=== PATIENT | male | born 1995 | race Hispanic/Latino ===

== ENCOUNTER 2016-11-23 17:04 | Observation (INO) | payer OTHER ==
[~2016-11-23] VITALS: Ht 170.2 cm; Wt 81.5 kg
[2016-11-23 17:07] VITALS: BP 139/84; PULSE 94; RESP 18; O2SAT 99
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
[2016-11-23] MEDS ORDERED: TdaP Vaccine 0.5 mL Inj IM ONE (17:50)
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
[2016-11-23] MEDS ORDERED: 0.9% Sodium Chloride 1,000 ML IV ONE (18:53)
[2016-11-23] MEDS ORDERED: HYDROmorphone 0.5 mg/0.5 mL iSecure Syringe IVPUSH PRN (18:55)
[2016-11-23] MEDS ORDERED: Alum-Mag Hydrox-Simeth 30 mL Suspension PO PRN (18:55)
[2016-11-23] MEDS ORDERED: Ondansetron 2 mg/mL 2 mL Inj IVPUSH ONE (18:55)
[2016-11-23] MEDS ORDERED: Ondansetron 2 mg/mL 2 mL Inj IVPUSH PRN ×2 (18:55→21:10)
--- NOTE | 2016-11-23 19:00 | DRSVH ---
PROCEDURE: X-RAY LEFT SHOULDER, MINIMUM TWO VIEWS ([id number]) INDICATIONS: injury TECHNIQUE: 4 views of the shoulder were acquired. COMPARISON: [facility], CR, XR RIBS INC PA CXR MIN 3VW LT, 11/23/2016, 18:01. FINDINGS: Bones: Left fifth and sixth rib fractures, mildly displaced. Soft tissues: There is a small left apical pneumothorax IMPRESSION: Left fifth and sixth rib fractures, with associated small left apical pneumothorax Dictated by: Esteban Eldridge M.D. on 11/23/2016 at 18:57 Approved by: Esteban Eldridge M.D. on 11/23/2016 at 18:58
[2016-11-23 19:48] VITALS: BP_SYST 137; BP_SYST 144; BP_DIAS 89; BP_DIAS 91; PULSE 82; RESP 18; O2SAT 99
[2016-11-23 20:41] LABS: BASOPHILS % (AUTO) 0 % (0-3); EOSINOPHILS % (AUTO) 0 % (0-5); MONOCYTES % (AUTO) 7.2 % (4-12); Mean Corpuscular Hemoglobin 30.5 pg (27.0-35.0); Mean Corpuscular Volume 89.8 fL (81-100); NEUTROPHILS % (AUTO) 84.4 % (40-74); Platelet Count 301 bil/L (150-400)
--- NOTE | 2016-11-23 20:48 | DRSVH ---
PROCEDURE: CT BRAIN WITHOUT CONTRAST ([id number]) INDICATIONS: Trauma TECHNIQUE: Noncontrast 4.5 mm thick angled axial sections acquired from the foramen magnum to the vertex, with c oronal reformats. COMPARISON: None. FINDINGS: Image quality: Suboptimal evaluation due to positioning CSF spaces: Basal cisterns are patent. No extra-axial fluid collections. Ventricles are normal in size and shape. Brain: No midline shift. No intracranial masses or hemorrhage. Peterson-white matter interface is norm al. Incidental felipe cisterna magna, anatomic variant Skull and face: Calvarium and visualized facial bones are intact, without suspicious lesions. Sinuses: Mild mucosal thickening in the left sphenoid sinus. IMPRESSION: No acute intracranial process. Dictated by: Esteban Eldridge M.D. on 11/23/2016 at 20:43 Approved by: Esteban Eldridge M.D. on 11/23/2016 at 20:47
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
--- NOTE | 2016-11-23 20:55 | DRSVH ---
PROCEDURE: CT CERVICAL SPINE WITHOUT CONTRAST ([id number]) INDICATIONS: Trauma TECHNIQUE: Noncontrast 3 mm thick sections acquired from the skull base to the T4 level. Sagittal and coronal r eformats were then constructed. For radiation dose reduction, the following was used: automated exp osure control, adjustment of mA and/or kV according to patient size. COMPARISON: [facility], CR, XR RIBS INC PA CXR MIN 3VW LT, 11/23/2016, 18:01. FINDINGS: Image quality: Excellent. Bones: Partially visualized left-sided rib fractures seen on the rib series dated same day. Soft tissues: Small left apical pneumothorax IMPRESSION: No cervical spine fracture. Partially visualized left-sided rib fractures Small left apical pneumothorax Dictated by: Esteban Eldridge M.D. on 11/23/2016 at 20:47 Approved by: Esteban Eldridge M.D. on 11/23/2016 at 20:53
[2016-11-23] MEDS ORDERED: Dextrose 5% Lactated Ringer's 1,000 ML IV SCH (21:06)
[2016-11-23 21:07] LABS: INR 0.95 ratio
[2016-11-23] MEDS ORDERED: HYDROmorphone 1 mg/mL Inj IVPUSH PRN (21:10)
[2016-11-23] MEDS ORDERED: MetoCLOpramide 5 mg/mL 2 mL Inj IVPUSH PRN (21:10)
--- NOTE | 2016-11-23 21:53 | DRSVH ---
PROCEDURE: CT CHEST WITH CONTRAST ([id number]) INDICATIONS: trauma TECHNIQUE: After the administration of intravenous contrast, 5 mm thick sections acquired from the pulmonary api parker to the posterior costophrenic angles. 7 mm thick coronal and sagittal MIP reformats were acquire d. For radiation dose reduction, the following was used: automated exposure control, adjustment of mA and/or kV according to patient size. COMPARISON: None. FINDINGS: Image quality: Excellent. Lungs and pleura: Small left pneumothorax is present. There is dependent atelectasis in the lung base s. No pleural effusion Mediastinum: Heart size is normal. No pericardial effusion. No mediastinal or hilar adenopathy by size criteria. Thoracic aorta and central pulmonary arteries are normal in size. Esophagus is deann l in caliber. No hiatal hernia. Bones and chest wall: Left fifth, sixth mildly displaced rib fractures. There are nondisplaced fract ures of the left seventh, eighth and ninth ribs. Adjacent subcutaneous soft tissue emphysema. No vert ebral body compression fractures Abdomen: Visualized upper abdominal solid organs appear normal. Upper abdominal bowel loops are nor mal in caliber. IMPRESSION: Multiple left rib fractures involving left fifth-ninth ribs as above. Small left pneumothorax. Dictated by: Esteban Eldridge M.D. on 11/23/2016 at 21:47 Approved by: Esteban Eldridge M.D. on 11/23/2016 at 21:51
[2016-11-23 22:47] VITALS: BP 151/84; PULSE 85; RESP 20; O2SAT 100
[2016-11-24 00:46] VITALS: BP 124/72; PULSE 86; RESP 18; O2SAT 98
--- NOTE | 2016-11-24 04:59 | NUR ---
Admission Pt admitted to [facility] rm 1026 at 2230 from the ED. Pt and his girlfriend [place] a [place]. Pt has 2 fractured ribs to left side and a very small pneumothorax to left lung. 0 surgical procedures done. Pt states his pain is 8/10 but he is tolerating it. He states most of the pain is to left scapula from tissue bruising. Accepted offer of pain meds, had + effects and pain reduced to 5/10. IV patent, IV fluids started. Pt oriented to room, call light and BR. Pt is general diet and full code. Tolerating PO intake. Call light in reach, bed in low position. Care continues.
[2016-11-24 05:35] VITALS: BP 126/68; PULSE 85; RESP 16; O2SAT 97
[2016-11-24 06:52] LABS: BASOPHILS % (AUTO) 0.1 % (0-3); EOSINOPHILS % (AUTO) 0.8 % (0-5); Mean Corpuscular Hemoglobin 30.3 pg (27.0-35.0); Mean Corpuscular Volume 91.3 fL (81-100); NEUTROPHILS % (AUTO) 54.4 % (40-74); Platelet Count 279 bil/L (150-400)
[2016-11-24 08:37] VITALS: BP 122/80; PULSE 82; RESP 18; O2SAT 98
--- NOTE | 2016-11-24 09:46 | PCM.PNSURG ---
Subjective Date of Service: Nov 24, 2016 Date of Service: Nov 24, 2016 Visit Information: Reason for Visit Rib Fx Pneumothorax Surgery/Surgery Date Post-Op Day # Date of Admission: Nov 23, 2016 at 19:32 Hospital Day # 1 Subjective: Seen this AM with general surgery team denying any significant related pain, nausea, or vomiting. Objective Vital Sign- Last 8 Hours Date Time Temp Pulse Resp B/P Pulse Ox O2 Delivery O2 Flow Rate FiO2 11/24/16 08:37 36.6 82 18 122/80 98 Room Air 11/24/16 05:35 36.6 85 16 126/68 97 Room Air Intake and Output- Last 8 Hour 11/24/16 Cumulative From/Thru 07:00 11/23/16 17:07 - 11/24/16 06:35 Intake Total 1012 ml 2012 ml Output Total 450 ml 450 ml Balance 562 ml 1562 ml Intake Oral 400 ml 400 ml IV Total 612 ml 1612 ml Output Urine Total 450 ml 450 ml # Bowel Movements 0 0 Result Diagram: 11/24/16 0558 11/24/16 0558 Papito Stubbs PA-C Nov 24, 2016 09:46
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
--- NOTE | 2016-11-24 11:48 | PCM.DISURG ---
Surgical Discharge Instruction Date of Service Nov 24, 2016 Dates of Hospitalization Date of Hospital Admission Nov 23, 2016 at 19:32 Providers Admitting Physician: Reilly Bronson MD Primary Care Physician: Nopmeaghan Attending Physician: Reilly Bronson MD Discharge Diagnosis Discharge Diagnosis Primary Diagnoses: 1. Fractured left ribs 5 through 9 2. Small left pneumothorax Diet Discharge Diet: No restrictions Activity Discharge Activity-General: Activity as energy allows Additional Instructions Discharge Instructions Seek immediate medical attention for severe or worsening chest or abdominal pain , nausea, vomiting, or shortness of breath. Recommendations for air travel per Dr. Yeh. Follow Up Plan Follow-up appointment: With Primary Care Provider ( in position) Call your provider for: Fever, Chills, Shortness of breath, Increasing abdominal pain, Nausea, Vomiting, Other (the to undergo managing her care elbow was a question she is) Additional Information Attending Statement All documentation reviewed & orders authorized by Dr. Raman Yeh M.D. Papito Stubbs PA-C Nov 24, 2016 11:48
[2016-11-24] MEDS ORDERED: OXYC1TAB24 PO (12:04)
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
--- NOTE | 2016-11-24 12:13 | NUR ---
Social Work- Multi-Disciplinary Rounds/ Screening/Discharge Data: EMR reviewed. Pt is a 21 year old male admitted 11/23/16 for rib fracture pneumothorax per H&P. Pt's insurance is [employer]. Pt's PCP is not listed. Pt's NOK is Coleman Beltrán, father, . Surgery is primary. Per rounds with loan secretary and UR RN pt is eating well and received a chest xray this morning. If chest xray is clear then pt will discharge. At this time, pt's discharge orders are active and packet is finalized. SW met with pt at bedside regarding discharge plan. Pt alert and oriented x3. Pt is ready to discharge. Pt resides in [facility] with roommates where he is independent at baseline. Pt was vacationing with his girlfriend prior to admission. Pt has an Air[employer]nb rented in [place] to stay in and a rental car for transportation. Pt will return to [place] after his vacation. Pt is employed in [place]. Pt will be transitioning to employer based healthcare plan and will obtain PCP at that time in [place]. Pt has no concerns about getting his script at discharge. Pt had no DPOA and declined information about one. Pt to discharge to rental home in [place] before returning to [place], transport via POV. No discharge needs identified. Assessment: Pt who is independent at baseline. Plan: Pt to discharge to rental home in [place] before returning to [place], transport via POV. No discharge needs identified. Nargis Pacheco MSW
[2016-11-24 13:13] VITALS: BP 118/80; PULSE 87; RESP 18; O2SAT 98
--- NOTE | 2016-11-24 14:06 | NUR ---
Discharge Pt to discharge "home" with girlfriend; [place] - d/t dc dx of rib fx and pneumothorax, pt will remain in [place] for one week before flying home. A&Ox3, SLOAN, IV dc'd intact, Pain present but tolerable - medicated prior to dc and instructed in no driving while on narcotics. Pt teaching and instructions provided on dc dx and new medications. Instructed on s/sx to watch for and seek medical attention for. Care Notes provided as well and pt encouraged to read over information with discharge. All personal belongings in hand - hard copy script provided to pt. Pt gathering items and states he will walk off unit to vehicle. Addendum: 11/24/16 at 1545 by JUAN BARNETT RN Pt walked off unit with belongings and gf out to car at ~1415.
--- NOTE | 2016-11-24 14:30 | PROG NOTE ---
[address] [address] PROGRESS NOTE PATIENT: DANNY HOOKS : 1995 MR#: [id number] ADMIT: 11/23/2016 JOB ID: [id number] DATE: 11/24/2016 NARRATIVE: The patient was admitted last night after a fall with several rib fractures and a pneumothorax that was seen on a CAT scan. This morning his chest x-ray demonstrates no evidence of continued pneumothorax. He will be discharged later today. I have reviewed with him the general recommendation that is often given that people not fly within two weeks after a pneumothorax. I reviewed with him that this is based primarily on anecdote and no prospective studies, and I have reviewed with him the study from [place] that demonstrated no significant complications from flying sooner than two weeks. Overall, based on his mechanism of injury, the method of diagnosis of this pneumothorax and his chest x-ray today, I have told him that I think it is reasonable that he fly down to [place] as planned if that is what he wants to do. We will also give him a note if he wants to delay his return to [place] for the airlines documenting that he had a traumatic injury and may need to reschedule his flight for medical reasons.
--- NOTE | 2016-11-25 11:09 | DRSVH ---
PROCEDURE: X-RAY CHEST ONE VIEW ([id number]) INDICATIONS: evaluate pneumothorax TECHNIQUE: One view of the chest was acquired. COMPARISON: Merged With [facility], CT, CT CHEST W CON, 11/23/2016, 21:29. FINDINGS: Surgical changes and devices: None. Lungs and pleura: No pleural effusions or pneumothorax. Lungs are clear. Mediastinum: Mediastinal contours appear normal. Heart size is normal. Bones and chest wall: No suspicious bony lesions. Overlying soft tissues appear unremarkable. Mild ly displaced right fifth and sixth posterior rib fracture is redemonstrated. IMPRESSION: Left-sided rib fractures are demonstrated and no definite pneumothorax seen on today's ex amination. Dictated by: Servando Can [facility] Interpreted: Mariam Mabry MD on 11/24/2016 at 8:41 Approved by: Mariam Mabry M.D. on 11/25/2016 at 11:07
== END 2016-11-24 14:00 | disposition home or self-care (01) ==
LOC: SED 17:04 → OSC 19:32
PROVIDERS: ADMIT Student in an Organized Health Care Education/Training Program; ATTEND Student in an Organized Health Care Education/Training Program
DX: S27.0XXA Traumatic pneumothorax, initial encounter (principal); S22.42XA Multiple fractures of ribs, left side, initial encounter for closed fracture; W17.81XA Fall down embankment (hill), initial encounter; Y92.828 Other wilderness area as the place of occurrence of the external cause; Y99.8 Other external cause status; Y93.01 Activity, walking, marching and hiking; M25.512 Pain in left shoulder
CPT/HCPCS: 36415; 70450; 71010; 71101; 71260; 72125; 73030; 80053; 85025; 85610; 85730; 86850; 90471; 90715; 96360; 96372; 99291; 99292; G0378; J1885; J7030; Q9967